=== PATIENT | male | born 1955 | race African-American/Black ===

== ENCOUNTER 2016-11-13 08:56 | Day surgery (SDC) | payer MEDICARE, OTHER ==
[2016-11-13] MEDS ORDERED: FENTANYL PF 100MCG/2ML VIAL IV ONE (14:07)
--- NOTE | 2016-11-17 09:00 | Operative Note ---
DATE OF SURGERY: 11/13/2016 SURGEON: Melissa Daugherty MD OPERATION: ESOPHAGOGASTRODUODENOSCOPY. INDICATIONS: This is a 61-year-old man with a history of gastric ulcers who presented for esophagogastroduodenoscopy. POSTOPERATIVE DIAGNOSES: 1. Mild distal esophagitis. 2. Healing gastric ulcer. 3. Normal duodenum. ANESTHESIA: Sedation is per Anesthesia. Pulse oximetry was monitored throughout the procedure to maintain O2 saturation of 90% or greater. Supplemental oxygen was administered via nasal cannula. Cardiac and vital signs were monitored throughout the duration of the procedure, and they were stable. The procedure of esophagogastroduodenoscopy and risks and benefits of the procedure, including the risk of bleeding and perforation, among others, were explained to the patient who voiced understanding and desired to have the procedure done. Physical examination was performed, and the patient was found stable for sedation. PROCEDURE: The patient was placed in the left lateral position. Sedation was initiated. A plastic bite block was inserted into the oral cavity. The Olympus LCY010 gastroscope was introduced into the oral cavity and advanced to the proximal esophagus without difficulty. The esophageal mucosa was carefully examined upon introduction of the gastroscope. The proximal and mid esophageal mucosa appeared normal. In the distal esophagus, there was mild erythema with erosions but no strictures noted. The gastroscope was then advanced into the stomach, and surveillance of the stomach revealed diffuse erythema along the gastric body and antrum with what appears to be a healing gastric antral ulcer. It is not completely healed yet. The gastroscope was then advanced to the descending duodenum. The duodenal bulb and descending duodenum appeared normal. The gastroscope was then withdrawn into the stomach and retroflexion was performed. There were no other lesions. Multiple gastric and duodenal biopsies were obtained. The gastroscope was then withdrawn while carefully examining the gastric and esophageal mucosa with no other lesions noted. Multiple distal esophageal biopsies were obtained. He remained with stable vital signs and was transferred to the recovery room. RECOMMENDATIONS: 1. He should continue on his proton pump inhibitors. 2. He is to follow up in the office as needed. Thank you for allowing me to participate in the care of your patient. Melissa Daugherty MD CC: Dr. Agusto VAN
== END 2016-11-13 10:46 | disposition home or self-care (01) ==
LOC: HOP 08:56
PROVIDERS: ATTEND Internal Medicine Gastroenterology
DX: Z87.11 Personal history of peptic ulcer disease (principal); K20.8 Other esophagitis; C15.5 Malignant neoplasm of lower third of esophagus; E03.9 Hypothyroidism, unspecified
CPT/HCPCS: 88305; 88313; 43239; 00740; J3010

== ENCOUNTER 2017-01-02 23:22 | Emergency (ER) | payer MEDICARE ==
[2017-01-02] MEDS ORDERED: ONDANSETRON HCL IV 4 MG/2 ML VIAL IVP ONE (23:40)
[2017-01-02] MEDS ORDERED: HYDROMORPHONE HCL 1 MG/ML CPJ IVP ONE (23:40)
--- NOTE | 2017-01-02 23:40 | Emergency Department Record ---
History of Present Illness - General Chief Complaint: Abdominal Pain Stated Complaint: VOMITING Time Seen by Provider: 01/02/17 23:31 Source: Patient, Family - History of Present Illness Initial Comments: The patient began having diarrhea around 4 p.m. today. Around 6 p.m. he started vomiting and and having severe abdominal pain. Emesis was bilious and more than 10 times. He states his abdomen feels bloated and it feels like his prior diverticulitis. He also recently had a upper GI scope which showed esophageal erosions distally. His reports that they just found out that he has esophageal cancer and is going to go to [facility] for treatment. This has not yet begun. His first appointment there is to be 01-06-17. MD Complaint: Abdominal pain, Other (vomiting) - Related Data Home Medications Medication Instructions Recorded Confirmed Last Taken Hydrocodone/Acetaminophen [[place] 1 tab PO Q6H PRN 11/11/15 01/02/17 03/10/16 7.5mg/325mg] Levothyroxine Sodium [Synthroid] 125 mcg PO DAILY 03/10/16 01/02/17 03/10/16 Acyclovir 400 mg PO BID 01/02/17 01/02/17 Unknown Atenolol [Tenormin] 50 mg PO ASDIR PRN 01/02/17 01/02/17 Unknown Cephalexin [Keflex] 500 mg PO BID 01/02/17 01/02/17 Unknown Famotidine [Pepcid] 20 mg PO BID 01/02/17 01/02/17 Unknown Polyethylene Glycol 3350 [Miralax] 17 gm PO DAILY 01/02/17 01/02/17 Unknown Allergies Allergy/AdvReac Type Severity Reaction Status Date / Time No Known Drug Allergies Allergy Verified 03/10/16 11:36 Review of Systems Reviewed: No additional complaints except as noted below Constitutional: Reports: As per HPI. Denies: Chills, Fever, Malaise, Night sweats, Weakness, Weight change Eyes: Reports: As per HPI. Denies: Eye discharge, Eye pain, Photophobia, Vision change ENT: Reports: As per HPI. Denies: Congestion, Dental pain, Ear pain, Epistaxis , Hearing loss, Throat pain Respiratory: Reports: As per HPI. Denies: Cough, Dyspnea, Hemoptysis, Stridor, Wheezes Cardiovascular: Reports: As per HPI. Denies: Arrhythmia, Chest pain, Dyspnea on exertion, Edema, Murmurs, Orthopnea, Palpitations, Paroxysmal nocturnal dyspnea, Rheumatic Fever, Syncope Endocrine: Reports: As per HPI. Denies: Fatigue, Heat or cold intolerance, Polydipsia, Polyuria Gastrointestinal: Reports: As per HPI. Denies: Abdominal pain, Constipation, Diarrhea, Hematemesis, Hematochezia, Melena, Nausea, Vomiting Genitourinary: Reports: As per HPI. Denies: Dysuria, Frequency, Hematuria, Incontinence, Retention, Testicular pain, Testicular mass, Urgency Musculoskeletal: Reports: As per HPI. Denies: Arthralgia, Back pain, Gout, Joint swelling, Myalgia, Neck pain Skin: Reports: As per HPI. Denies: Bruising, Change in color, Change in hair/ nails, Lesions, Pruritus, Rash Neurological: Reports: As per HPI. Denies: Abnormal gait, Confusion, Headache, Numbness, Paresthesias, Seizure, Tingling, Tremors, Vertigo, Weakness Psychiatric: Reports: As per HPI. Denies: Anxiety, Auditory hallucinations, Depression, Homicidal thoughts, Suicidal thoughts, Visual hallucinations Hematological/Lymphatic: Reports: As per HPI. Denies: Anemia, Blood Clots, Easy bleeding, Easy bruising, Swollen glands Past Medical History - SOCIAL HISTORY Smoking Status: Former smoker - RESPIRATORY Hx Respiratory Disorders: No - CARDIOVASCULAR Hx Cardio Disorders: No Comment:: d/t back/knee pain - NEURO Hx Neuro Disorders: No - GI Hx GI Disorders: Yes Hx Ulcer: Yes (pt does not think so) - Hx Genitourinary Disorders: No - ENDOCRINE Hx Endocrine Disorders: Yes Hx Thyroid Disease: Yes - MUSCULOSKELETAL Hx Musculoskeletal Disorders: Yes - PSYCH Hx Psych Problems: No - HEMATOLOGY/ONCOLOGY Hx Hematology/Oncology Disorders: No Physical Exam - General General Appearance: Alert, Oriented x3, Cooperative, Severe distress - Head Head exam: Normal inspection - Eye Eye exam: Normal appearance, PERRL Pupils: Normal accommodation - ENT ENT exam: Normal exam, Mucous membranes dry, Normal external ear exam, Normal orophraynx, TM's normal bilaterally Ear exam: Normal external inspection. negative: External canal tenderness Nasal Exam: Normal inspection. negative: Discharge, Sinus tenderness Mouth exam: Normal external inspection, Tongue normal Teeth exam: Normal inspection. negative: Dental caries Throat exam: Normal inspection. negative: Tonsillar erythema, Tonsillar exudate - Neck Neck exam: Normal inspection, Full ROM. negative: Tenderness - Respiratory Respiratory exam: Normal lung sounds bilaterally. negative: Respiratory distress - Cardiovascular Cardiovascular Exam: Regular rate, Normal rhythm, Normal heart sounds - GI/Abdominal GI/Abdominal exam: Soft, Normal bowel sounds, Distended, Tenderness (diffusely all quadrants) - Rectal Rectal exam: Deferred - exam: Deferred - Extremities Extremities exam: Normal inspection, Full ROM, Normal capillary refill. negative: Tenderness - Back Back exam: Reports: Normal inspection, Full ROM. Denies: Muscle spasm, Rash noted, Tenderness - Neurological Neurological exam: Alert, Normal gait, Oriented X3, Reflexes normal - Psychiatric Psychiatric exam: Normal affect, Normal mood - Skin Skin exam: Dry, Intact, Normal color, Warm Course - Reevaluation(s) Reevaluation #1: Patient's pain has decreased from 10/10 to 7/10 and he appears much more comfortable. His nausea also has improved. He is complaining of his LUQ hurting which does NOT go into his back. He is tender over his entire abdomen but most tender LUQ. He denies any allergies to contrast dye. 01/02/17 23:56 01/03/17 00:00 Reevaluation #2: Reviewed report of 11-13-16 of an esophagogastroduodenoscopy which showed mild distal esophagitis, healing gastric ulcer and a normal duodenum. reports that the biopsies from this procedure returned with esophageal cancer which the doctors think is localized. 01/02/17 23:58 Reevaluation #3: Repeat abdominal exam shows RLQ to be NONtender to palpation. Remainder of abdomen is diffusely tender but no point tenderness, less distention. Soft, no rebound. 01/03/17 01:26 01/03/17 01:44 Reevaluation #4: There is no surgeon fashion designer for this hospital this weekend. Spoke to Dr. Vieyra, surgery fashion designer for [facility] who accepts patient for a direct admit to his service. Patient and his understand and agree. 01/03/17 01:41 01/03/17 01:44 Medical Decision Making - Management Options MDM Management: Additional Work-up Planned (e.g. ADM/Transfer/OP Study) ( Transfer to [facility] for a direct admit surgical referral) - Data Complexity MDM Data: Labs Ordered and/or Reviewed, X-Ray Ordered and/or Reviewed (Contrast CT Abd/Pelvis:9mm aoppendix costining a large appendicolith without surrounding inflamation.Clinical correlation for focal right lower quadrant tenderness is recommended. There is duffuse mild wall thickinging of the colon. Colon is relatively decompresed, but clinical correlation for evidence of colitis is recommended. No evidence of obstruction, perforation or abscess.), EKG Ordered and/or Reviewed - Lab Data Result diagrams: 01/02/17 23:40 01/02/17 23:40 - EKG Data -: EKG Interpreted by Ut EKG: No Acute Changes Disposition Disposition: Transfer Clinical Impression: Non-specific colitis, Appendicolith Abdominal pain Qualifiers: Abdominal location: generalized Qualified Code(s): R10.84 - Generalized abdominal pain Nausea & vomiting Qualifiers: Vomiting type: bilious vomiting Qualified Code(s): R11.14 - Bilious vomiting Disposition: Acute Care Hospital Transfer Decision to Admit: Admit from ER Transfer To: [facility] Reason For Transfer: Surgery admission Accepting Physician: Dr. Vieyra Time Discussed w/Accepting Physician: 01:47 Condition: (2) Stable Forms: Patient Portal Access
[2017-01-02] MEDS ORDERED: FAMOTIDINE IV 20 MG/2 ML VIAL IVP ONE (23:41)
[2017-01-02] MEDS ORDERED: 0.9 % SODIUM CHLORIDE 1,000 ML BAG IV ONE (23:41)
[2017-01-02 23:55] LABS: HEMATOCRIT 42.6 % (42.0-52.0); HEMOGLOBIN 13.8 gm/dl (14.0-18.0); MEAN CELL VOLUME 79.6 fl (81-97); MEAN CORPUSCULAR HGB CONC 32.4 g/dl (32-36); MEAN PLATELET VOLUME 9.5 fl (7.4-10.4); PLATELET COUNT 249 K/uL (130-400); RED BLOOD COUNT 5.35 M/uL (4.40-5.70); RED CELL DISTRIBUTION WIDTH 18.5 % (11.5-14.5); WHITE BLOOD COUNT W/O DIFF 9.2 K/uL (4.2-12.2)
[2017-01-02 23:59] LABS: MEAN CORPUSCULAR HEMOGLOBIN 25.7 pg (27-33)
[2017-01-03] MEDS ORDERED: PROMETHAZINE HCL 25 MG/ML VIAL IVP ONE ×2 (00:04→03:21)
[2017-01-03 00:08] LABS: ALKALINE PHOSPHATASE 74 U/L (38-126); ALT/SGPT 41 U/L (21-72); ANION GAP 16.3 (7-16); AST/SGOT 33 U/L (17-59); BILIRUBIN,TOTAL 0.68 mg/dL (0.2-1.3); BLOOD UREA NITROGEN 14 mg/dL (9-20); CARBON DIOXIDE 25.7 mmol/L (22-30); EST GLOMERULAR FILTRATION RATE > 60 ml/min; GLUCOSE,RANDOM 129 mg/dL (70-110); TOTAL PROTEIN 8.3 gm/dL (6.3-8.2)
[2017-01-03 00:19] LABS: TROPONIN I < 0.012 ng/mL (0.00-0.034)
[2017-01-03 01:15] LABS: URINE APPEARANCE CLEAR; URINE BILIRUBIN NEGATIVE (NEGATIVE); URINE BLOOD TRACE-I (NEGATIVE); URINE COLOR YELLOW; URINE GLUCOSE (UA) NEGATIVE (NEGATIVE); URINE KETONE NEGATIVE (NEGATIVE); URINE LEUKOCYTE ESTERASE NEGATIVE (NEGATIVE); URINE NITRITE NEGATIVE (NEGATIVE); URINE PROTEIN NEGATIVE (NEGATIVE); URINE UROBILINOGEN 0.2 E.U./dL (0.20 - 1.00)
[2017-01-03 01:27] LABS: URINE EPITHELIAL CELLS 0 - 2 (FEW); URINE RBC 0 - 2 (NONE SEEN); URINE WBC 0 - 2 (0-2/hpf)
[2017-01-03] MEDS ORDERED: ERTAPENEM SODIUM 1 G in 0.9 % SODIUM CHLORIDE 100ML 100 ML IVPB ONE (01:36)
[2017-01-03] MEDS ORDERED: HYDROMORPHONE HCL 1 MG/ML CPJ IVP ONE ×2 (01:45→03:21)
== END 2017-01-03 03:27 | disposition short-term general hospital (02) ==
LOC: ER 23:22
DX: K38.1 Appendicular concretions (principal); K52.9 Noninfective gastroenteritis and colitis, unspecified; R19.7 Diarrhea, unspecified; R10.84 Generalized abdominal pain; R11.14 Bilious vomiting
CPT/HCPCS: 99285 ×2; 96376; 96374; 96375; 83690; 85025; 80076; 84484; 80048; 81001; 85027; 74177; 93005; 93010; Q9967; J1335; J2405; J1170 ×2; J2550; J3490; J7030

== ENCOUNTER 2017-01-04 15:51 | Emergency (ER) | payer MEDICARE | END 2017-01-04 16:15 | disposition left against medical advice (07) | LOC: ER 15:51 | DX: Z53.20 Procedure and treatment not carried out because of patient's decision for unspecified reasons (principal) ==

== ENCOUNTER 2017-01-05 01:15 | Emergency (ER) | payer MEDICARE ==
[2017-01-05] MEDS ORDERED: 0.9 % SODIUM CHLORIDE 1,000 ML BAG IV ONE ×2 (01:29→03:15)
[2017-01-05] MEDS ORDERED: ONDANSETRON HCL IV 4 MG/2 ML VIAL IVP ONE ×3 (01:38→03:22)
[2017-01-05] MEDS ORDERED: HYDROMORPHONE HCL 1 MG/ML CPJ IVP ONE ×2 (01:38→03:18)
[2017-01-05 02:00] LABS: BASO % 0.2 % (0-6); GRAN % 73.5 % (47-80); HEMATOCRIT 46.5 % (42.0-52.0); HEMOGLOBIN 15.4 gm/dl (14.0-18.0); LYMPH % 15.5 % (16-45); MEAN CELL VOLUME 78.3 fl (81-97); MEAN CORPUSCULAR HEMOGLOBIN 25.9 pg (27-33); MEAN CORPUSCULAR HGB CONC 33.1 g/dl (32-36); MONO % 10.8 % (0-9); PLATELET COUNT 251 K/uL (130-400); RED BLOOD COUNT 5.94 M/uL (4.40-5.70); RED CELL DISTRIBUTION WIDTH 19.5 % (11.5-14.5); WHITE BLOOD COUNT W/O DIFF 12.6 K/uL (4.2-12.2)
--- NOTE | 2017-01-05 02:06 | Emergency Department Record ---
History of Present Illness - General Chief Complaint: Abdominal Pain Stated Complaint: ABD PAIN Time Seen by Provider: 01/05/17 01:27 Source: Patient, Family Mode of Arrival: Ambulatory - History of Present Illness Initial Comments: 61 yo male presents with nausea, vomiting and abdominal pain. He was seen in the ER on 01/02/17 and sent to [facility] He was released on Wednesday. After about one hour and a half the pain returned with nausea and vomiting. He reports he went to the ER again. He was evaluated in the ED and states he was discharged. His nausea and and pain have continued. Over the last several months he has had similar episodes of pain and vomiting. He has been admitted to [facility] and [facility]. He has had multiple CT scans and scopes. He was diagnosed with esophageal cancer on 11/13/16 in the distal esophagus on EGD by Dr Daugherty. He has an appointment at [facility] on 01/06/17 On 09/02/17 the patient was admitted to [facility], GI consult, CT scan, On 11/13/16 the patient had an EGD with Dr Daugherty. 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 EGD US performed3/7mm thickening noted, esophagitis, recommend Pet Scan, CT chest, and [facility] referral On 12/01/16 the patient developed nausea and vomiting with abdominal pain and was admitted to [facility] for 4 days. DC on 12/05/16. Intractable NV, abdominal pain On 12/30/16 the patient met with [facility] physician to discuss the cancer treatment plan On 01/02/17 the patient develop recurrent NV and was seen at [facility] and transferred to [facility]. The CT scan demonstrated an appendicolith, decompressed colon and possibly thickened. The patient was discharged on 01/04/17. He is scheduled on 01/06/17 to start his cancer treatment. MD Complaint: Abdominal pain Onset/Timin -: Hour(s) Location: Diffuse Radiation: None Migration to: No migration Severity: Severe Quality: Aching Consistency: Constant Improves With: Nothing Worsens With: Nothing Context: Other Associated Symptoms: Denies other symptoms - Related Data Home Medications Medication Instructions Recorded Confirmed Last Taken Hydrocodone/Acetaminophen [[place] 1 tab PO Q6H PRN 11/11/15 01/05/17 01/04/17 7.5mg/325mg] Levothyroxine Sodium [Synthroid] 125 mcg PO DAILY 03/10/16 01/05/17 01/04/17 Acyclovir 400 mg PO BID 01/02/17 01/05/17 01/04/17 Cephalexin [Keflex] 500 mg PO BID 01/02/17 01/05/17 01/04/17 Polyethylene Glycol 3350 [Miralax] 17 gm PO DAILY 01/02/17 01/05/17 01/04/17 Allergies Allergy/AdvReac Type Severity Reaction Status Date / Time tramadol Allergy HEADACHE Verified 01/05/17 01:19 Travel Screening - Travel/Exposure Within Last 30 Days Have you traveled within the last 30 days?: No - Travel/Exposure Within Last Year Have you traveled outside the [place] in the last year?: No - Additonal Travel Details Have you been exposed to anyone with a communicable illness?: No - Travel Symptoms Symptom Screening: None Past Medical History - SOCIAL HISTORY Smoking Status: Former smoker Alcohol Use: None Drug Use: None - RESPIRATORY Hx Respiratory Disorders: No - CARDIOVASCULAR Hx Cardio Disorders: No Comment:: d/t back/knee pain - NEURO Hx Neuro Disorders: No - GI Hx GI Disorders: Yes Hx Ulcer: Yes (pt does not think so) - Hx Genitourinary Disorders: No - ENDOCRINE Hx Endocrine Disorders: Yes Hx Thyroid Disease: Yes - MUSCULOSKELETAL Hx Musculoskeletal Disorders: Yes - PSYCH Hx Psych Problems: No - HEMATOLOGY/ONCOLOGY Hx Hematology/Oncology Disorders: Yes Hx Cancer: Yes (Esophageal Cancer) Hx Chemotherapy: No Hx Radiation Therapy: No Family Medical History Any Significant Family History?: No Course Vital Signs 01/05/17 01:18 Temperature 99.5 F Pulse Rate 114 H Respiratory 16 Rate Blood Pressure 141/116 Pulse Ox 100 - Reevaluation(s) Reevaluation #1: The patient received the Zofran and Dilaudid and feels much better. 01/05/17 02:05 CBC reviewed. WBC 12, no acute changes. 01/05/17 02:33 Reevaluation #2: The second shift supervisor at [facility] stated she does not have records available to send from the 01/02/17 admission or the 01/04/17 ED visit. Medical records at [facility] were unable find or provide the 12/01/16 admission records. 01/05/17 02:41 Reevaluation #3: The labs were reviewed No acute changes on the CMP or Lipase 01/05/17 02:59 The patient continues to do well. I am receiving records from the other hospitals visits He has had recurrent episodes over a few months like this He was unable to fill his pain prescription or nausea prescription after discharge. 01/05/17 03:19 Reevaluation #4: The patient continues to do very well with no pain or nausea We discussed the need to follow up tomorrow at [facility] as scheduled He had run out of his [place] but will refill them this morning when the pharmacy opens as well as the Zofran which he did not have at home 01/05/17 03:28 01/05/17 03:31 01/05/17 04:17 Medical Decision Making - Lab Data Result diagrams: 01/05/17 02:00 01/05/17 02:00 Disposition Disposition: Discharge Clinical Impression: Nausea & vomiting Qualifiers: Vomiting type: bilious vomiting Qualified Code(s): R11.14 - Bilious vomiting Abdominal pain Qualifiers: Abdominal location: generalized Qualified Code(s): R10.84 - Generalized abdominal pain Disposition: Home, Self-Care Condition: (1) Good Instructions: Abdominal Pain (ED) Additional Instructions: Clear liquids today Fill your prescriptions your were provided at [facility] Follow [facility]. Return immediately if you have any return of symptoms Forms: Patient Portal Access Time of Disposition: 03:29
[2017-01-05 02:48] LABS: URINE APPEARANCE CLEAR; URINE BILIRUBIN NEGATIVE (NEGATIVE); URINE BLOOD MODERATE (NEGATIVE); URINE COLOR YELLOW; URINE GLUCOSE (UA) NEGATIVE (NEGATIVE); URINE KETONE 15 mg/dL (NEGATIVE); URINE LEUKOCYTE ESTERASE NEGATIVE (NEGATIVE); URINE NITRITE NEGATIVE (NEGATIVE); URINE UROBILINOGEN 0.2 E.U./dL (0.20 - 1.00)
[2017-01-05 02:55] LABS: URINE BACTERIA NONE SEEN; URINE EPITHELIAL CELLS 0 - 2 (FEW); URINE WBC 0 - 2 (0-2/hpf)
[2017-01-05 02:56] LABS: ALBUMIN 4.3 gm/dL (3.5-5.0); ALKALINE PHOSPHATASE 67 U/L (38-126); ALT/SGPT 40 U/L (21-72); ANION GAP 15.2 (7-16); AST/SGOT 41 U/L (17-59); BILIRUBIN,TOTAL 0.68 mg/dL (0.2-1.3); BLOOD UREA NITROGEN 9 mg/dL (9-20); CARBON DIOXIDE 23.8 mmol/L (22-30); CREATININE 0.8 mg/dL (0.66-1.25); EST GLOMERULAR FILTRATION RATE > 60 ml/min; GLUCOSE,RANDOM 110 mg/dL (70-110); LIPASE 71 U/L (23-300); TOTAL PROTEIN 7.1 gm/dL (6.3-8.2)
[2017-01-05] MEDS ORDERED: HYDROCODONE/APAP 7.5/325MG TABLET PO ONE (04:19)
[2017-01-05] MEDS ORDERED: ONDANSETRON 4 MG ODT TABLET SL ONE (04:19)
== END 2017-01-05 04:37 | disposition home or self-care (01) ==
LOC: ER 01:15
DX: R11.14 Bilious vomiting (principal); R10.84 Generalized abdominal pain; C15.5 Malignant neoplasm of lower third of esophagus; Z87.891 Personal history of nicotine dependence
CPT/HCPCS: 80048; 80076; 81001; 83690; 85025; J1170; J2405; J7030

== ENCOUNTER 2017-01-05 13:58 | Observation (INO) | payer MEDICARE ==
[2017-01-05] MEDS ORDERED: HYDROMORPHONE HCL 1 MG/ML CPJ IVP ONE ×2 (14:15→16:46)
[2017-01-05] MEDS ORDERED: 0.9 % SODIUM CHLORIDE 1000ML 1,000 ML IV SCH (14:15)
[2017-01-05] MEDS ORDERED: ONDANSETRON HCL IV 4 MG/2 ML VIAL IVP ONE ×2 (14:15→16:46)
--- NOTE | 2017-01-05 14:19 | Emergency Department Record ---
History of Present Illness - General Chief Complaint: Abdominal Pain Stated Complaint: ABD PAIN/VOMITING ELVATED B/P Time Seen by Provider: 01/05/17 14:01 Source: Patient Mode of Arrival: Ambulatory Limitations: No limitations - History of Present Illness Initial Comments: 61 yo male returns to ED for recurrent nausea, vomiting, and abdominal pain symptoms. Patient was recently seen 01/02/17 and transferred to [facility] [place] consultation regarding a distended appendix and appendocolith. Patient was admitted and discharged 01/04/17 following improvement of his symptoms. Patient returned to the ED this morning, was treated for his symptoms which markedly improved, and was discharged home with instruction to fill his prescription for analgesia and antiemetic this morning which the patient reports that he filled. Patient reports taking his prescription medications which did not help much. Patient was scheduled for consultation at [facility] tomorrow to begin treatment for esophageal cancer as well, but reports that he is going to cancel his appointment tomorrow. MD Complaint: Abdominal pain Onset/Timin -: Days(s) Location: Periumbilical Radiation: None Migration to: No migration Severity: Severe Quality: Other Consistency: Constant Improves With: Nothing Worsens With: Nothing Associated Symptoms: Fever, Nausea, Vomiting - Related Data Home Medications Medication Instructions Recorded Confirmed Last Taken Hydrocodone/Acetaminophen [[place] 1 tab PO Q4HR PRN 11/11/15 01/05/17 01/05/17 7.5mg/325mg] Levothyroxine Sodium [Synthroid] 125 mcg PO DAILY 03/10/16 01/05/17 01/04/17 Acyclovir 400 mg PO BID 01/02/17 01/05/17 01/04/17 Cephalexin [Keflex] 500 mg PO BID 01/02/17 01/05/17 01/04/17 Polyethylene Glycol 3350 [Miralax] 17 gm PO DAILY 01/02/17 01/05/17 01/04/17 Allergies Allergy/AdvReac Type Severity Reaction Status Date / Time tramadol Allergy HEADACHE Verified 01/05/17 14:09 Travel Screening - Travel/Exposure Within Last 30 Days Have you traveled within the last 30 days?: No Review of Systems Constitutional: Denies: Chills, Fever, Malaise, Night sweats Eyes: Denies: Eye discharge, Eye pain ENT: Denies: Congestion, Ear pain, Epistaxis Respiratory: Denies: Cough, Dyspnea Cardiovascular: Denies: Chest pain, Dyspnea on exertion Endocrine: Denies: Fatigue, Heat or cold intolerance Gastrointestinal: Reports: Abdominal pain, Nausea, Vomiting Genitourinary: Denies: Incontinence, Retention Musculoskeletal: Denies: Arthralgia, Back pain, Gout, Joint swelling Skin: Denies: Bruising, Change in color Neurological: Denies: Abnormal gait, Confusion, Headache, Seizure Psychiatric: Denies: Anxiety Hematological/Lymphatic: Denies: Anemia, Blood Clots, Easy bleeding Past Medical History - SOCIAL HISTORY Smoking Status: Former smoker Alcohol Use: None Drug Use: None - RESPIRATORY Hx Respiratory Disorders: No - CARDIOVASCULAR Hx Cardio Disorders: No - NEURO Hx Neuro Disorders: No - GI Hx GI Disorders: Yes - Hx Genitourinary Disorders: No - ENDOCRINE Hx Endocrine Disorders: Yes Hx Thyroid Disease: Yes - MUSCULOSKELETAL Hx Musculoskeletal Disorders: Yes - PSYCH Hx Psych Problems: No - HEMATOLOGY/ONCOLOGY Hx Hematology/Oncology Disorders: Yes Hx Cancer: Yes (Esophageal Cancer) Hx Chemotherapy: No Hx Radiation Therapy: No Family Medical History Any Significant Family History?: No Physical Exam - General General Appearance: Alert, Oriented x3, Cooperative, Moderate distress Limitations: No limitations - Head Head exam: Atraumatic, Normocephalic, Normal inspection Head exam detail: negative: Abrasion, Contusion, Radford's sign, General tenderness, Hematoma, Laceration - Eye Eye exam: Normal appearance. negative: Conjunctival injection, Periorbital swelling, Periorbital tenderness, Scleral icterus - ENT Ear exam: negative: Auricular hematoma, Auricular trauma Nasal Exam: negative: Active bleeding, Discharge, Dried blood, Foreign body Mouth exam: negative: Drooling, Laceration, Muffled voice, Tongue elevation - Neck Neck exam: Normal inspection. negative: Meningismus, Tenderness - Respiratory Respiratory exam: Normal lung sounds bilaterally. negative: Rales, Respiratory distress, Rhonchi, Stridor - Cardiovascular Cardiovascular Exam: Regular rate, Normal rhythm, Normal heart sounds - GI/Abdominal GI/Abdominal exam: Soft, Tenderness (diffuse TTP on examination). negative: Rebound, Rigid - Rectal Rectal exam: Deferred - exam: Deferred - Extremities Extremities exam: Normal inspection. negative: Calf tenderness, Pedal edema, Tenderness - Back Back exam: Denies: CVA tenderness (R), CVA tenderness (L) - Neurological Neurological exam: Alert, Oriented X3. negative: Motor sensory deficit - Psychiatric Psychiatric exam: Normal affect, Normal mood - Skin Skin exam: Normal color. negative: Abrasion Type of lesion: negative: abrasion Course Vital Signs 01/05/17 14:01 Temperature 98.4 F Pulse Rate 80 Respiratory 20 Rate Blood Pressure 204/114 Pulse Ox 99 - Reevaluation(s) Reevaluation #1: 01/05/17 14:23 CT Abdomen and Pelvis 01/02/17: demonstration of appendicolith with dialted appendix, decompressed colon possible thickened. Reevaluation #2: 01/05/17 16:17 Labs reviewed, WBC improved from this morning (10.6 dwon from 12.6), CO2 20.3, AG 21.7. Labs are otherwise grossly unremarkable for an acute process. Reevaluation #3: 01/05/17 16:47 Patient's symptoms are improved however are now beginning to return. Repeat analgesia and anti-emetic ordered for the patient. Will initiate transfer for intractable nausea, vomiting, and abdominal pain symptoms and oncologic consultation (Dr. Kuo) 01/05/17 16:54 Reevaluation #4: 01/05/17 16:57 Case was discussed with Dr. Simms ( of ), hospital is currently closed to transfers/admissions. Will discuss admission with Dr. Sandoval. 01/05/17 18:24 Reevaluation #5: 01/05/17 17:08 Case was discussed with Dr. Sandoval, will admit for observation. 01/05/17 18:25 Medical Decision Making - Lab Data Result diagrams: 01/05/17 15:51 01/05/17 15:51 Disposition Disposition: Admit Clinical Impression: Abdominal pain Qualifiers: Abdominal location: generalized Qualified Code(s): R10.84 - Generalized abdominal pain Nausea & vomiting Qualifiers: Vomiting type: bilious vomiting Qualified Code(s): R11.14 - Bilious vomiting Disposition: Still a Patient at [facility] Decision to Admit: Admit from ER Decision to Admit Date: 01/05/17 Decision to Admit Time: 17:09 Time of Disposition: 17:09
[2017-01-05 15:55] LABS: BASO % 0.2 % (0-6); EOS % 1.2 % (0-6); GRAN % 78.4 % (47-80); HEMATOCRIT 43.5 % (42.0-52.0); HEMOGLOBIN 14.2 gm/dl (14.0-18.0); MEAN CELL VOLUME 78.4 fl (81-97); MEAN CORPUSCULAR HEMOGLOBIN 25.6 pg (27-33); MEAN CORPUSCULAR HGB CONC 32.6 g/dl (32-36); MEAN PLATELET VOLUME 9.5 fl (7.4-10.4); MONO % 7.2 % (0-9); PLATELET COUNT 206 K/uL (130-400); RED BLOOD COUNT 5.55 M/uL (4.40-5.70); RED CELL DISTRIBUTION WIDTH 18.9 % (11.5-14.5); WHITE BLOOD COUNT W/O DIFF 10.6 K/uL (4.2-12.2)
[2017-01-05 16:08] LABS: ALB/GLOB RATIO 1.5 (1.1-1.8); ALBUMIN 5.2 gm/dL (3.5-5.0); ALKALINE PHOSPHATASE 78 U/L (38-126); ALT/SGPT 38 U/L (21-72); ANION GAP 21.7 (7-16); AST/SGOT 65 U/L (17-59); BLOOD UREA NITROGEN 9 mg/dL (9-20); CARBON DIOXIDE 20.3 mmol/L (22-30); CREATININE 0.8 mg/dL (0.66-1.25); EST GLOMERULAR FILTRATION RATE > 60 ml/min; GLUCOSE,RANDOM 101 mg/dL (70-110); LIPASE 78 U/L (23-300); TOTAL PROTEIN 8.7 gm/dL (6.3-8.2)
[2017-01-05] MEDS ORDERED: AL HYDROX/MAG HYDROX 30ML UD PO ONE (17:15)
[2017-01-05] MEDS: 0.9 % SODIUM CHLORIDE 1000ML 1,000 ML IV PRN ×2 (17:59→21:01)
[2017-01-05] MEDS: CEPHALEXIN 500 MG CAPSULE PO SCH (21:04)
[2017-01-05] MEDS: ACYCLOVIR 200 MG CAPSULE PO SCH (21:04)
[2017-01-05] MEDS: HYDROMORPHONE HCL 1 MG/ML CPJ IVP PRN (21:05)
[2017-01-05] MEDS: ONDANSETRON HCL IV 4 MG/2 ML VIAL IVP PRN (21:07)
[2017-01-05] MEDS ORDERED: ACYCLOVIR 400 MG PO SCH (22:00)
[2017-01-06] MEDS: HYDROMORPHONE HCL 1 MG/ML CPJ IVP PRN ×6 (01:07→21:13)
[2017-01-06] MEDS: ONDANSETRON HCL IV 4 MG/2 ML VIAL IVP PRN ×6 (01:07→21:13)
[2017-01-06] MEDS: 0.9 % SODIUM CHLORIDE 1000ML 1,000 ML IV PRN (05:16)
[2017-01-06] MEDS: ACYCLOVIR 200 MG CAPSULE PO SCH (09:02)
[2017-01-06] MEDS: CEPHALEXIN 500 MG CAPSULE PO SCH (09:02)
[2017-01-06] MEDS ORDERED: POLYETHYLENE GLY 17 GM PACKET PO SCH (10:00)
[2017-01-06] MEDS ORDERED: ENOXAPARIN 40 MG/0.4 ML SYR SQ SCH (10:15)
--- NOTE | 2017-01-06 13:32 | History & Physical ---
History of Present Illness - Date of Service Date of Service for History & Physical: 01/06/17 - History of Present Illness Admitting Diagnosis: Intractable abdominal pain. Nausea/vomiting History of Present Illness: Shai Almonte is a 61 y/o male with recent diagnosis of esophageal cancer in November 2016 presenting to ER with persistent nausea, vomiting and abdominal pain since 01/02/17. He was had multiple ER visits and admissions in past two month for similar symptoms however, detailed below. On 09/02/17 the patient was admitted to [facility] ([facility]), GI consult, CT scan. On 11/13/16 the patient had an EGD with Dr Daugherty ([facility] The pathology of the distal esophagus demonstrated adenocarcinoma (high grade). On 11/30/16 the patient had a second scope with Dr Daugherty at [facility]. EGD US performed showed 3/7mm thickening, esophagitis. It was recommend to have further Pet Scan, CT chest, and [facility] referral. On 12/01/16 the patient developed nausea and vomiting with abdominal pain and was admitted to [facility] for 4 days. DC on 12/05/16. No further record on hand of this admission. On 12/30/16 the patient met with Mahendra physician to discuss the cancer treatment plan On 01/02/17 the patient develop recurrent N/V and was seen at [facility] and transferred to [facility]. The CT scan demonstrated an appendicolith, decompressed colon and possibly thickened upon initial read of report. However, once patient was transferred the CT was reread by the surgical team as normal. The patient was discharged on 01/04/17. with follow up appt with [facility]hen[facility] on 01/07/17. However his symptoms of N/V/abdominal pain resulted in him returning to our ER on 01/05 (along with another ER visit on 01/05, 01/02), in [place] where he resides. This is his 3rd ER visit for the same in the past month at our ER. He was admitted under OBS for pain control while awaiting initial consultation with [facility]. [facility] Ont[facility] was unable to accept transfer due to "divergence status" and recommended he follow up in the clinic at his appt time on 01/07. The Nguyen consulting sales executive pito stated she would contact the clinic he is following up with to inform them to send him to ER if he is still symptomatic. Our attending , Dr. Sebastian, spoke to PCP, Dr. Meza, and received the notes that we have reviewed and included in his chart. Psx: hemorrhoidectomy, inguinal hernia repair, left great toe surgery Pmx: GERD, gastritis, hashimotos thyroiditis with iodine tx, hypothyroid s/p iodine tx, gastric ulcer, genital herpes, arthritis, previsou smoker quit [address] Meza (contacted on 01/06 to inform him of admission) Travel Screening - Travel/Exposure Within Last 30 Days Have you traveled within the last 30 days?: No - Travel/Exposure Within Last Year Have you traveled outside the [place] in the last year?: No - Additonal Travel Details Have you been exposed to anyone with a communicable illness?: No - Travel Symptoms Symptom Screening: None Review of Systems Constitutional: Denies: Chills, Fever, Malaise, Night sweats Eyes: Denies: Eye discharge, Eye pain ENT: Denies: Congestion, Ear pain, Epistaxis Respiratory: Denies: Cough, Dyspnea Cardiovascular: Denies: Chest pain, Dyspnea on exertion Endocrine: Denies: Fatigue, Heat or cold intolerance Gastrointestinal: Reports: Abdominal pain, Nausea, Vomiting Genitourinary: Denies: Incontinence, Retention Musculoskeletal: Denies: Arthralgia, Back pain, Gout, Joint swelling Skin: Denies: Bruising, Change in color Neurological: Denies: Abnormal gait, Confusion, Headache, Seizure Psychiatric: Denies: Anxiety Hematological/Lymphatic: Denies: Anemia, Blood Clots, Easy bleeding Past Medical History - SOCIAL HISTORY Smoking Status: Former smoker - RESPIRATORY Hx Respiratory Disorders: No Hx Asthma: No Hx Bronchitis: No - CARDIOVASCULAR Hx Cardio Disorders: No Hx Edema: No Hx Heart Attack: No Hx Hypertension: No Hx Hypotension: No Comment:: d/t back/knee pain - NEURO Hx Neuro Disorders: No Hx Brain Tumor: No Hx CVA: No Hx Dementia: No Hx Dizziness: No Hx Headaches: No Hx Neuropathy: No Hx Parkinson's Disease: No Hx Seizures: No Hx Speech Problem: No Hx TIA: No - GI Hx GI Disorders: Yes Hx Abdominal Pain: Yes Hx GI Bleed: No Hx Reflux: Yes Hx Hepatitis/Jaundice: No Hx Nausea/Vomiting: Yes (last emesis 1pm) Hx Obstructive Bowel: No Hx Pancreatitis: No Hx Rectal Bleeding: No Hx Ulcer: Yes (pt does not think so) Hx Wt Loss/Wt Gain: No - Hx Genitourinary Disorders: No Comment:: genital herpes - ENDOCRINE Hx Endocrine Disorders: Yes Hx Thyroid Disease: Yes - MUSCULOSKELETAL Hx Musculoskeletal Disorders: Yes Hx Arthritis: Yes Hx Back Injury: Yes - PSYCH Hx Psych Problems: No Hx Anxiety: No Hx Behavior Problems: No Hx Depression: No Hx Emotional Abuse: No Hx Sexual Abuse: No Hx Suicide Attempt: No Major Depressive Episode: No Feelings of Hopelessness: No - HEMATOLOGY/ONCOLOGY Hx Hematology/Oncology Disorders: Yes Hx Cancer: Yes (Esophageal Cancer) Hx Chemotherapy: No Hx Radiation Therapy: No Family Medical History Any Significant Family History?: No H&P Meds/Allergies - Allergies Allergies: Allergies Allergy/AdvReac Type Severity Reaction Status Date / Time tramadol Allergy HEADACHE Verified 01/05/17 14:09 - Home Medications Home Medications Medication Instructions Recorded Confirmed Last Taken Hydrocodone/Acetaminophen [[place] 1 tab PO Q4HR PRN 11/11/15 01/05/17 01/05/17 7.5mg/325mg] Acyclovir 400 mg PO BID 01/02/17 01/05/17 01/04/17 Cephalexin [Keflex] 500 mg PO BID 01/02/17 01/05/17 01/04/17 Polyethylene Glycol 3350 [Miralax] 17 gm PO DAILY 01/02/17 01/05/17 01/04/17 Levothyroxine Sodium [Synthroid] 125 mcg PO DAILYTHY 01/06/17 01/06/17 Unknown - Active Medications Active Medications: Current Medications Enoxaparin Sodium (Lovenox) 40 mg SQ DAILY [facility] Last Admin: 01/06/17 11:54 Dose: Not Given Hydromorphone HCl (Dilaudid) 1 mg IVP Q4H PRN PRN Reason: Abdominal Pain Last Admin: 01/06/17 13:16 Dose: 1 mg Sodium Chloride () 1,000 mls @ 125 mls/hr IV .Q8H PRN PRN Reason: LARGE VOLUME IV Last Admin: 01/06/17 05:16 Dose: 125 mls/hr Levothyroxine Sodium (Synthroid) 125 mcg PO DAILYTHY [facility] Ondansetron HCl (Zofran) 4 mg IVP Q4H PRN PRN Reason: NAUSEA Last Admin: 01/06/17 13:16 Dose: 4 mg Physical Exam - Vital Signs Vital Signs: Vital Signs - Last 24 Hrs Temp Pulse Pulse Pulse Resp BP BP 01/06/17 09:55 98.8 F 123/77 01/06/17 08:31 60 18 01/06/17 06:00 98.8 F 63 18 123/77 01/06/17 01:00 69 18 106/67 01/05/17 21:00 69 18 01/05/17 20:30 97.7 F 69 18 130/83 01/05/17 17:54 98.8 F 86 18 129/86 01/05/17 17:52 98.9 F 97 H 16 119/70 Pulse Ox 01/06/17 09:55 01/06/17 08:31 01/06/17 06:00 98 01/06/17 01:00 97 01/05/17 21:00 01/05/17 20:30 97 01/05/17 17:54 98 01/05/17 17:52 98 - General General Appearance: Alert, Oriented x3, Cooperative, Moderate distress Limitations: No limitations - Head Head exam: Atraumatic, Normocephalic, Normal inspection Head exam detail: negative: Abrasion, Contusion, Radford's sign, General tenderness, Hematoma, Laceration - Eye Eye exam: Normal appearance. negative: Conjunctival injection, Periorbital swelling, Periorbital tenderness, Scleral icterus - ENT Ear exam: negative: Auricular hematoma, Auricular trauma Nasal Exam: negative: Active bleeding, Discharge, Dried blood, Foreign body Mouth exam: negative: Drooling, Laceration, Muffled voice, Tongue elevation - Neck Neck exam: Normal inspection. negative: Meningismus, Tenderness - Respiratory Respiratory exam: Normal lung sounds bilaterally. negative: Rales, Respiratory distress, Rhonchi, Stridor - Cardiovascular Cardiovascular Exam: Regular rate, Normal rhythm, Normal heart sounds - GI/Abdominal GI/Abdominal exam: Soft, Normal bowel sounds, Tenderness (diffuse TTP on examination). negative: Rebound, Rigid - Rectal Rectal exam: Deferred - exam: Deferred - Extremities Extremities exam: Normal inspection. negative: Calf tenderness, Pedal edema, Tenderness - Back Back exam: Denies: CVA tenderness (R), CVA tenderness (L) - Neurological Neurological exam: Alert, Oriented X3. negative: Motor sensory deficit - Psychiatric Psychiatric exam: Normal affect, Normal mood - Skin Skin exam: Normal color. negative: Abrasion Type of lesion: negative: abrasion Results - Labs Result Diagrams: 01/05/17 15:51 01/05/17 15:51 VTE H&P Assessment - Risk for VTE Risk for VTE: Yes Risk Level: Moderate Risk Assessment Date: 01/06/17 Risk Assessment Time: 13:34 VTE Orders Placed or Will Be Placed: Yes Plan - Detailed Diagnosis and Plan (1) Abdominal pain Current Visit: Yes Status: Acute Qualifiers: Abdominal location: generalized Qualified Code(s): R10.84 - Generalized abdominal pain Base Code: R10.9 - UNSPECIFIED ABDOMINAL PAIN Comment: 01/06 addendum- Recurrent abdominal pain, nausea and vomiting since approx Aug 2016. - subsequent finding after GI consult and EGD of adenocarcinoma (high grade) of the esophagus diagnosed 11/2016. - surgical consult at [facility] 01/03/17 did not show abnormality of CT per their interpretation of the CT scan done at [facility]. - Abdominal pain, nausea and vomiting persisent but controlled with Dilauded 1mg Q 4 hrs PRN and ZOfran 4mg IVP q 4 hrs PRN. Most recent CBC normal with electrolyte successfully balanced with Magnesium replacement in ER and 0.9% NS @ 125/hr maintenance. Tolerating clear liquid diet. - Awaiting appointment at [facility] as previously scheduled for 01/07 at 0815 with oncology for cancer treatment planning as well as continued monitoring and follow up for abdominal pain. - [facility] unable to accept transfer due to divergent status, will send to [facility] earlier in morning to keep appt time. (2) Esophageal cancer Current Visit: Yes Status: Acute Base Code: C15.9 - MALIGNANT NEOPLASM OF ESOPHAGUS, UNSPECIFIED Comment: 01/06- Will keep in hospital for pain control until time for discharge to make the travel to [facility]. See note above. (3) DVT prophylaxis Current Visit: Yes Status: Acute Base Code: [id number] - Comment: 01/06- Lovenox 40mg SQ QD (4) Full code status Current Visit: Yes Status: Acute Base Code: Z78.9 - OTHER SPECIFIED HEALTH STATUS Comment: 01/06- Will remain full code during this hospitalization
[2017-01-06] MEDS ORDERED: TEMAZEPAM 15 MG CAPSULE PO PRN (17:33)
--- NOTE | 2017-01-06 17:36 | Discharge Summary ---
Providers Discharge Summary Date: 01/07/17 (discharge at 5am) Date of admission: 01/05/17 17:43 Expected Date of Discharge: 01/07/17 (dischage at 5am) Attending physician: ZAC MAYBERRY Primary care physician: YOBANI AMBROSIO D.O. Physical Exam - Vital Signs Vital Signs: Vital Signs - Last 24 Hrs Temp Pulse Pulse Pulse Resp BP BP 01/06/17 17:00 98.8 F 71 12 119/78 01/06/17 09:55 98.8 F 123/77 01/06/17 08:31 60 18 01/06/17 06:00 98.8 F 63 18 123/77 01/06/17 01:00 69 18 106/67 01/05/17 21:00 69 18 01/05/17 20:30 97.7 F 69 18 130/83 01/05/17 17:54 98.8 F 86 18 129/86 01/05/17 17:52 98.9 F 97 H 16 119/70 Pulse Ox 01/06/17 17:00 98 01/06/17 09:55 01/06/17 08:31 01/06/17 06:00 98 01/06/17 01:00 97 01/05/17 21:00 01/05/17 20:30 97 01/05/17 17:54 98 01/05/17 17:52 98 - General General Appearance: Alert, Oriented x3, Cooperative, Moderate distress Limitations: No limitations - Head Head exam: Atraumatic, Normocephalic, Normal inspection Head exam detail: negative: Abrasion, Contusion, Radford's sign, General tenderness, Hematoma, Laceration - Eye Eye exam: Normal appearance. negative: Conjunctival injection, Periorbital swelling, Periorbital tenderness, Scleral icterus - ENT Ear exam: negative: Auricular hematoma, Auricular trauma Nasal Exam: negative: Active bleeding, Discharge, Dried blood, Foreign body Mouth exam: negative: Drooling, Laceration, Muffled voice, Tongue elevation - Neck Neck exam: Normal inspection. negative: Meningismus, Tenderness - Respiratory Respiratory exam: Normal lung sounds bilaterally. negative: Rales, Respiratory distress, Rhonchi, Stridor - Cardiovascular Cardiovascular Exam: Regular rate, Normal rhythm, Normal heart sounds - GI/Abdominal GI/Abdominal exam: Soft, Normal bowel sounds, Tenderness (diffuse TTP on examination). negative: Rebound, Rigid - Rectal Rectal exam: Deferred - exam: Deferred - Extremities Extremities exam: Normal inspection. negative: Calf tenderness, Pedal edema, Tenderness - Back Back exam: Denies: CVA tenderness (R), CVA tenderness (L) - Neurological Neurological exam: Alert, Oriented X3. negative: Motor sensory deficit - Psychiatric Psychiatric exam: Normal affect, Normal mood - Skin Skin exam: Normal color. negative: Abrasion Type of lesion: negative: abrasion Hospitalization - Hospitalization Admission Diagnosis: Intractable abdominal pain. Nausea/vomiting - Problem List/Discharge Diagnosis (1) Abdominal pain Current Visit: Yes Status: Acute Discharge Diagnosis: Abdominal location: generalized Qualified Code(s): R10.84 - Generalized abdominal pain Base Code: R10.9 - UNSPECIFIED ABDOMINAL PAIN Comment: 01/07 addendum- Recurrent abdominal pain, nausea and vomiting since approx Aug 2016. - subsequent finding after GI consult and EGD of adenocarcinoma (high grade) of the esophagus diagnosed 11/2016. - surgical consult at [facility] 01/03/17 did not show abnormality of CT per their interpretation of the CT scan done at [facility]. - Abdominal pain, nausea and vomiting persisent but controlled with Dilauded 1mg Q 4 hrs PRN and ZOfran 4mg IVP q 4 hrs PRN. Most recent CBC normal with electrolyte successfully balanced with Magnesium replacement in ER and 0.9% NS @ 125/hr maintenance. Tolerating clear liquid diet. - Awaiting appointment at [facility] as previously scheduled for 01/07 at 0815 with oncology for cancer treatment planning as well as continued monitoring and follow up for abdominal pain. - [facility] unable to accept transfer due to divergent status, will send to [facility] earlier in morning to keep appt time. (2) Esophageal cancer Current Visit: Yes Status: Acute Base Code: C15.9 - MALIGNANT NEOPLASM OF ESOPHAGUS, UNSPECIFIED Comment: 01/07- Will keep in hospital for pain control until time for discharge to make the travel to [facility]. See note above. (3) DVT prophylaxis Current Visit: Yes Status: Acute Base Code: [id number] - Comment: 01/06- Lovenox 40mg SQ QD (4) Full code status Current Visit: Yes Status: Acute Base Code: Z78.9 - OTHER SPECIFIED HEALTH STATUS Comment: 01/07- Will remain full code during this hospitalization - Hospitalization Course Hospital Course: Shai Almonte is a 61 y/o male with recent diagnosis of esophageal cancer in November 2016 presenting to ER with persistent nausea, vomiting and abdominal pain since 01/02/17. He was had multiple ER visits and admissions in past two month for similar symptoms however, detailed below. On 09/02/17 the patient was admitted to [facility] ([facility]), GI consult, CT scan. On 11/13/16 the patient had an EGD with Dr Daugherty ([facility]). The pathology of the distal esophagus demonstrated adenocarcinoma (high grade). On 11/30/16 the patient had a second scope with Dr Daugherty at [facility]. EGD US performed showed 3/7mm thickening, esophagitis. It was recommend to have further Pet Scan, CT chest, and Mahendra referral. On 12/01/16 the patient developed nausea and vomiting with abdominal pain and was admitted to [facility] for 4 days. DC on 12/05/16. No further record on hand of this admission. On 12/30/16 the patient met with Mahendra physician to discuss the cancer treatment plan On 01/02/17 the patient develop recurrent N/V and was seen at [facility] and transferred to [facility]. The CT scan demonstrated an appendicolith, decompressed colon and possibly thickened upon initial read of report. However, once patient was transferred the CT was reread by the surgical team as normal. The patient was discharged on 01/04/17. with follow up appt with Mahendra on 01/07/17. However his symptoms of N/V/abdominal pain resulted in him returning to our ER on 01/05 (along with another ER visit on 01/05, 01/02), in [place] where he resides. This is his 3rd ER visit for the same in the past month at our ER. He was admitted under OBS for pain control while awaiting initial consultation with [facility]. [facility] Ont[facility] was unable to accept transfer due to "divergence status" and recommended he follow up in the clinic at his appt time on 01/07. The Nguyen application assistant physican stated she would contact the clinic he is following up with to inform them to send him to ER if he is still symptomatic. Our attending , Dr. Mayberry, spoke to PCP, Dr. Ambrosio, and received the notes that we have reviewed and included in his chart. In his hospital stay we were able to manage his pain, nausea, and vomiting with IV Dilaudid and Zofran. He is high risk for bounce back with his current medical status. CT repeated 01/06/17 at [facility] was unremarkable Psx: hemorrhoidectomy, inguinal hernia repair, left great toe surgery Pmx: GERD, gastritis, hashimotos thyroiditis with iodine tx, hypothyroid s/p iodine tx, gastric ulcer, genital herpes, arthritis, previsou smoker quit [address] Ambrosio (contacted on 01/06 to inform him of admission) Procedures: Imaging and X-Rays 01/06/17 14:16 ABDOMEN/PELVIS W CONTRAST [CT] Stat Condition at Discharge: (4) Poor Discharge Diagnosis: 1) recurrent intractable nausea/vomitting/abdominal pain 2 ) GI cancer Discharge Medications - Discharge Medications Home Medications: Ambulatory Orders Hydrocodone/Acetaminophen [[place] 7.5mg/325mg] 1 tab PO Q4HR PRN 11/11/15 [Last Taken 01/05/17] Acyclovir 400 mg PO BID 01/02/17 [Last Taken 01/04/17] Cephalexin [Keflex] 500 mg PO BID 01/02/17 [Last Taken 01/04/17] Polyethylene Glycol 3350 [Miralax] 17 gm PO DAILY 01/02/17 [Last Taken 01/04/17] Levothyroxine Sodium [Synthroid] 125 mcg PO DAILYTHY 01/06/17 [Last Taken Unknown] Discharge Plan - Discharge Instructions Activity at Discharge: Increase Activity as Tolerated Diet at Discharge: Advance to Usual Diet
[2017-01-07] MEDS: ONDANSETRON HCL IV 4 MG/2 ML VIAL IVP PRN ×2 (01:22→05:06)
[2017-01-07] MEDS: HYDROMORPHONE HCL 1 MG/ML CPJ IVP PRN ×2 (01:22→05:07)
[2017-01-07] MEDS ORDERED: LEVOTHYROXINE SODIUM 125 MCG TABLET PO SCH (07:00)
--- NOTE | 2017-01-07 07:42 | CT SCAN REPORT ---
EXAM: CT OF THE ABDOMEN AND PELVIS HISTORY: ABDOMINAL PAIN. TECHNIQUE: Axial CT scan of the abdomen and pelvis was performed following both oral and IV contrast administration, utilizing a dose of 100 ml of Omnipaque 300 for the IV contrast. Comparison: Prior CT abdomen and pelvis dated 01/03/17. Report of the prior CT is not available at the time of this interpretation. FINDINGS: A single tiny low attenuation mass far posteriorly in the right lobe of the liver is unchanged from before. Recommend correlation with prior work- up. No definite splenic, adrenal, pancreatic, or renal mass identified. There is some soft tissue density in the right inguinal region also present previously and may just be postoperative in nature. Correlation with any history of prior right inguinal hernia repair suggested. Enlarged prostate similar to before. Oral contrast given has passed throughout the small bowel into the colon with no small bowel obstruction evident. The appendix is well seen and is at about the upper limits of normal diffusely measuring just under 7 mm in diameter. No adjacent inflammatory changes are seen to suggest acute appendicitis at this time. There are thick walled segments of the colon which are nonspecific and may simply be due to incomplete distention. No calcified gallstones are seen within the gallbladder. Calcified granuloma right lateral costophrenic angle as before. Small periumbilical anterior abdominal wall hernia containing adipose tissue, but no bowel. No free intraperitoneal air or free intraperitoneal fluid evident. Degenerative change in the facets of the lower lumbar spine. Degenerative change along the anterior aspect of the sacroiliac joints as well. Degenerative disk disease in the lower lumbar spine. Multilevel facet joint arthropathy. IMPRESSION: 1. TINY LOW ATTENUATION FOCUS POSTERIORLY IN THE LIVER APPEARING UNCHANGED FROM THE PRIOR CT. 2. THICK WALLED APPEARANCE OF SECTIONS OF THE COLON MAY SIMPLY BE DUE TO INCOMPLETE DISTENTION. 3. THE APPENDIX IS DIFFUSELY AT ABOUT THE UPPER LIMITS OF NORMAL. NO DEFINITE APPENDICITIS EVIDENT. 4. ENLARGED PROSTATE BEFORE. 5. SOFT TISSUE DENSITY RIGHT INGUINAL REGION BEFORE MAY BE POSTOPERATIVE IN NATURE RELATED TO PRIOR INGUINAL HERNIA REPAIR AND CLINICAL CORRELATION IS SUGGESTED. 6. MULTILEVEL DEGENERATIVE CHANGE IN THE SPINE. 7. CALCIFIED GRANULOMA RIGHT LATERAL COSTOPHRENIC ANGLE BEFORE. JOB NUMBER: [id number] [facility]
== END 2017-01-07 05:30 | disposition home or self-care (01) ==
LOC: ER 13:58 → MEDSURG 17:43
PROVIDERS: ADMIT Family Medicine; ATTEND Family Medicine
DX: R10.84 Generalized abdominal pain (principal); C15.9 Malignant neoplasm of esophagus, unspecified; Z78.9 Other specified health status
CPT/HCPCS: 99284 ×2; 99285 ×2; 96376; 96374; 96375; 96361; 83690; 85025; 80076; 80048; 80053; 81001; 74177; G0378 ×3; Q9967; J2405 ×3; J1170 ×3; 99217; 99220; J7030

== ENCOUNTER 2017-01-07 16:27 | Emergency (ER) | payer MEDICARE ==
--- NOTE | 2017-01-07 16:48 | Emergency Department Record ---
History of Present Illness - General Chief Complaint: Abdominal Pain Stated Complaint: ABD PAIN AND VOMITING Time Seen by Provider: 01/07/17 16:47 Source: Patient Mode of Arrival: Ambulatory Limitations: No limitations - History of Present Illness Initial Comments: The patient is here due to a worsening of his abdominal pain. The patient has had an issue with AP for months and has been taking narcotics for it. He recently was diagnosed with early stages of esophageal CA by EGD and has been admitted to multiple hospitals in the last week including [facility] and [facility]. The patient just left this hospital at 5:30 am today and went to an appointment at [facility] but was not having any pain then. Since that visit his pain and vomiting have returned. He denies any ST, cough, fever, [place] or neck or back pain. MD Complaint: Abdominal pain Onset/Timin -: Days(s) Location: Diffuse Radiation: None Severity: Severe Quality: Sharp Consistency: Constant Improves With: Nothing Worsens With: Nothing Associated Symptoms: Nausea, Vomiting - Related Data Home Medications Medication Instructions Recorded Confirmed Last Taken Hydrocodone/Acetaminophen [[place] 1 tab PO Q4HR PRN 11/11/15 01/07/17 01/05/17 7.5mg/325mg] Acyclovir 400 mg PO BID 01/02/17 01/07/17 01/04/17 Cephalexin [Keflex] 500 mg PO ASDIR 01/02/17 01/07/17 01/04/17 Polyethylene Glycol 3350 [Miralax] 17 gm PO DAILY 01/02/17 01/07/17 01/04/17 Levothyroxine Sodium [Synthroid] 125 mcg PO DAILYTHY 01/06/17 01/07/17 Unknown Allergies Allergy/AdvReac Type Severity Reaction Status Date / Time tramadol Allergy HEADACHE Verified 01/05/17 14:09 Travel Screening - Travel/Exposure Within Last 30 Days Have you traveled within the last 30 days?: No Review of Systems Constitutional: Denies: Chills, Fever Eyes: Denies: Eye discharge ENT: Denies: Congestion Respiratory: Denies: Cough, Dyspnea Cardiovascular: Denies: Chest pain Gastrointestinal: Reports: Abdominal pain, Vomiting Genitourinary: Denies: Dysuria Musculoskeletal: Denies: Back pain Skin: Denies: Bruising Past Medical History - SOCIAL HISTORY Smoking Status: Former smoker - RESPIRATORY Hx Respiratory Disorders: No Hx Asthma: No Hx Bronchitis: No - CARDIOVASCULAR Hx Cardio Disorders: No Hx Edema: No Hx Heart Attack: No Hx Hypertension: No Hx Hypotension: No Comment:: d/t back/knee pain - NEURO Hx Neuro Disorders: No Hx Brain Tumor: No Hx CVA: No Hx Dementia: No Hx Dizziness: No Hx Headaches: No Hx Neuropathy: No Hx Parkinson's Disease: No Hx Seizures: No Hx Speech Problem: No Hx TIA: No - GI Hx GI Disorders: Yes Hx Abdominal Pain: Yes Hx GI Bleed: No Hx Reflux: Yes Hx Hepatitis/Jaundice: No Hx Nausea/Vomiting: Yes (last emesis 1pm) Hx Obstructive Bowel: No Hx Pancreatitis: No Hx Rectal Bleeding: No Hx Ulcer: Yes (pt does not think so) Hx Wt Loss/Wt Gain: No - Hx Genitourinary Disorders: No Comment:: genital herpes - ENDOCRINE Hx Endocrine Disorders: Yes Hx Thyroid Disease: Yes - MUSCULOSKELETAL Hx Musculoskeletal Disorders: Yes Hx Arthritis: Yes Hx Back Injury: Yes - PSYCH Hx Psych Problems: No Hx Anxiety: No Hx Behavior Problems: No Hx Depression: No Hx Emotional Abuse: No Hx Sexual Abuse: No Hx Suicide Attempt: No - HEMATOLOGY/ONCOLOGY Hx Hematology/Oncology Disorders: Yes Hx Cancer: Yes (Esophageal Cancer) Hx Chemotherapy: No Hx Radiation Therapy: No Family Medical History Any Significant Family History?: No Physical Exam - General General Appearance: Alert, Oriented x3, Cooperative, No acute distress - Head Head exam: Atraumatic, Normocephalic, Normal inspection - Eye Eye exam: Normal appearance, PERRL - ENT Throat exam: Normal inspection. negative: Tonsillar erythema, Tonsillar exudate - Neck Neck exam: Normal inspection, Full ROM. negative: Meningismus (The neck is very supple.), Tenderness - Respiratory Respiratory exam: Normal lung sounds bilaterally. negative: Respiratory distress - Cardiovascular Cardiovascular Exam: Regular rate, Normal rhythm, Normal heart sounds - GI/Abdominal GI/Abdominal exam: Soft, Tenderness (There is diffuse tenderness in all 4 quads. ). negative: Diminished bowel sounds, Distended - Extremities Extremities exam: Normal inspection, Full ROM, Normal capillary refill. negative: Tenderness Course Vital Signs 01/07/17 16:35 Temperature 99.9 F H Pulse Rate [ 88 Pulse Ox Probe] Respiratory 24 Rate Blood Pressure 202/117 [Left Arm] Pulse Ox 100 - Reevaluation(s) Reevaluation #1: I did review the patient's hx at length. He has been an inpatient at [facility] and here at [facility] in the last week and has had [address]. I do feel the patient's main issue at this time is narcotic withdrawal due to the fact his workups are normal and his esophageal issues are in the very early stages. We will treat the patient with antiemetics and Ativan and check some lab work to evaluate the patient further. 01/07/17 17:16 01/07/17 18:48 Reevaluation #2: The patient is doing better. He does have a low grade temp so I did discuss further testing including a CT scan with the patient. He is no longer vomiting and did receive 1 liter of IVF. The patient is very focused on receiving Dilaudid. Because he was not receiving any he decided to leave AMA. I also did discuss admitting him here at [facility] but the admitting physician was reluctant due to the fact we have nothing to offer him here. We have no GI doctor here and no one to take care of his cancer issues and chronic abdominal issues. The patient was instructed to continue his present medicines and to return to the ER if he changes his mind or worsens. 01/07/17 18:26 01/07/17 18:48 Reevaluation #3: Now the patient is vomiting again and is would like to be transferred to another institution. Since he was just at [facility] he would like to go back there. I did discuss the case with Dr. Iverson who is manager semiconductor for the [employer] and he accepts the patient in transfer. 01/07/17 19:09 Reevaluation #4: The patient is feeling much better at this time. He is resting comfortably and is awaiting transfer. 01/07/17 19:51 Medical Decision Making - Data Complexity MDM Data: Labs Ordered and/or Reviewed, Review and Summary of Old Record Discussed - Lab Data Result diagrams: 01/07/17 17:05 01/07/17 17:05 Disposition Disposition: Transfer Clinical Impression: Abdominal pain Qualifiers: Abdominal location: generalized Qualified Code(s): R10.84 - Generalized abdominal pain Disposition: Acute Care Hospital Transfer Transfer To: [facility] Reason For Transfer: Chronic AP Accepting Physician: Zayra Time Discussed w/Accepting Physician: 19:14 Condition: (2) Stable Instructions: Abdominal Pain (ED) Additional Instructions: Please see your PCP KARMEN. Please proceed to the ER for any worsening pain or if you change your mind. Forms: Patient Portal Access Time of Disposition: 18:47
[2017-01-07] MEDS ORDERED: 0.9 % SODIUM CHLORIDE 1,000 ML BAG IV ONE ×2 (16:53→17:38)
[2017-01-07] MEDS ORDERED: ONDANSETRON HCL IV 4 MG/2 ML VIAL IV ONE (16:53)
[2017-01-07] MEDS ORDERED: LORAZEPAM 2 MG/ML VIAL IV ONE (16:57)
[2017-01-07 17:26] LABS: HEMATOCRIT 40.5 % (42.0-52.0); HEMOGLOBIN 13.1 gm/dl (14.0-18.0); MEAN CELL VOLUME 78.9 fl (81-97); MEAN CORPUSCULAR HEMOGLOBIN 25.5 pg (27-33); MEAN CORPUSCULAR HGB CONC 32.3 g/dl (32-36); MEAN PLATELET VOLUME 9.3 fl (7.4-10.4); PLATELET COUNT 268 K/uL (130-400); RED BLOOD COUNT 5.13 M/uL (4.40-5.70); RED CELL DISTRIBUTION WIDTH 18.2 % (11.5-14.5); WHITE BLOOD COUNT W/O DIFF 10.2 K/uL (4.2-12.2)
[2017-01-07 17:37] LABS: URINE APPEARANCE CLEAR; URINE BILIRUBIN NEGATIVE (NEGATIVE); URINE BLOOD TRACE-I (NEGATIVE); URINE COLOR YELLOW; URINE GLUCOSE (UA) NEGATIVE (NEGATIVE); URINE KETONE 40 mg/dL (NEGATIVE); URINE LEUKOCYTE ESTERASE NEGATIVE (NEGATIVE); URINE NITRITE NEGATIVE (NEGATIVE); URINE PROTEIN NEGATIVE (NEGATIVE); URINE UROBILINOGEN 0.2 E.U./dL (0.20 - 1.00)
[2017-01-07 17:44] LABS: ALBUMIN 4.9 gm/dL (3.5-5.0); ALKALINE PHOSPHATASE 79 U/L (38-126); ALT/SGPT 42 U/L (21-72); AMYLASE 80 U/L (30-110); ANION GAP 17.1 (7-16); AST/SGOT 41 U/L (17-59); BILIRUBIN,TOTAL 0.81 mg/dL (0.2-1.3); BLOOD UREA NITROGEN 7 mg/dL (9-20); CARBON DIOXIDE 26.9 mmol/L (22-30); CREATININE 0.9 mg/dL (0.66-1.25); EST GLOMERULAR FILTRATION RATE > 60 ml/min; GLUCOSE,RANDOM 105 mg/dL (70-110); LIPASE 120 U/L (23-300); TOTAL PROTEIN 7.9 gm/dL (6.3-8.2)
[2017-01-07 17:45] LABS: URINE EPITHELIAL CELLS NONE SEEN (FEW); URINE RBC 0 - 2 (NONE SEEN); URINE WBC NONE SEEN (0-2/hpf)
[2017-01-07 17:45] LABS: PLATELET ESTIMATE NORMAL (NORMAL)
[2017-01-07] MEDS ORDERED: POTASSIUM CHLORIDE 20 MEQ TABLET PO ONE (18:03)
[2017-01-07] MEDS ORDERED: ACETAMINOPHEN 325 MG TAB PO ONE (18:54)
[2017-01-07] MEDS ORDERED: HYDROMORPHONE HCL 1 MG/ML CPJ IVP ONE (19:14)
[2017-01-07] MEDS ORDERED: ONDANSETRON HCL IV 4 MG/2 ML VIAL IVP ONE (19:14)
== END 2017-01-07 20:15 | disposition short-term general hospital (02) ==
LOC: ER 16:27
DX: R10.84 Generalized abdominal pain (principal); R11.2 Nausea with vomiting, unspecified; C15.9 Malignant neoplasm of esophagus, unspecified
CPT/HCPCS: 99285 ×2; 96376; 96374; 96375; 96361; 82150; 83690; 80076; 80048; 81001; 85027; J2405; J2060; J1170; J7030

== ENCOUNTER 2018-10-08 04:34 | Emergency (ER) | payer BC, MEDICARE ==
--- NOTE | 2018-10-08 04:47 | Emergency Department Record ---
History of Present Illness - General Chief Complaint: Cough Stated Complaint: COUGH Time Seen by Provider: 10/08/18 04:39 Source: Patient, Family Mode of Arrival: Ambulatory Limitations: No limitations - History of Present Illness Initial Comments: 63 yo male presents with five days of cough, congestion, sore throat, headaches , and subjective fever. No productive sputum. He is a non smoker. His is present and has the same symptoms. No vomiting. He states it hurts to cough. He had one single episode of diarrhea. He did not have a flu shot this year. MD Complaint: Cough, Nasal congestion, Rhinorrhea, Sinus pain, Sore throat -: Days(s) (5) Severity: Moderate Quality: Aching Consistency: Constant Improves With: Nothing Worsens With: Nothing Context: Sick contacts ( with the same) Associated Symptoms: Chills, Cough, Diarrhea (once), Hoarseness, Nausea, Sore throat - Related Data Home Medications Medication Instructions Recorded Confirmed Last Taken Atenolol 50 mg PO DAILY PRN 10/08/18 10/08/18 Unknown Lamotrigine 150 mg PO BID 10/08/18 10/08/18 Unknown Meloxicam 15 mg PO DAILY 10/08/18 10/08/18 Unknown Omeprazole [Prilosec] 20 mg PO BID 10/08/18 10/08/18 Unknown Previous Rx's Medication Instructions Recorded Benzonatate [Tessalon] 1 cap PO Q8H PRN #12 cap 10/08/18 Oseltamivir Phosphate [Tamiflu] 75 mg PO BID #10 capsule 10/08/18 Allergies Allergy/AdvReac Type Severity Reaction Status Date / Time tramadol Allergy HEADACHE Verified 01/05/17 14:09 Review of Systems Constitutional: Reports: Fever, Malaise Eyes: Denies: Eye discharge, Eye pain, Vision change ENT: Reports: Congestion, Throat pain Respiratory: Reports: Cough Cardiovascular: Denies: Chest pain (hurts to cough), Palpitations, Syncope Endocrine: Denies: Fatigue Gastrointestinal: Reports: Diarrhea (once), Nausea. Denies: Abdominal pain Genitourinary: Denies: Dysuria, Frequency, Hematuria Musculoskeletal: Reports: Myalgia. Denies: Arthralgia, Back pain Skin: Denies: Bruising, Change in color, Rash Neurological: Reports: Headache. Denies: Numbness, Weakness Psychiatric: Denies: Anxiety Hematological/Lymphatic: Denies: Easy bleeding, Easy bruising Past Medical History - SOCIAL HISTORY Smoking Status: Former smoker - RESPIRATORY Hx Respiratory Disorders: No Hx Asthma: No Hx Bronchitis: No - CARDIOVASCULAR Hx Cardio Disorders: No Hx Edema: No Hx Heart Attack: No Hx Hypertension: No Hx Hypotension: No Comment:: d/t back/knee pain - NEURO Hx Neuro Disorders: No Hx Brain Tumor: No Hx CVA: No Hx Dementia: No Hx Dizziness: No Hx Headaches: No Hx Neuropathy: No Hx Parkinson's Disease: No Hx Seizures: No Hx Speech Problem: No Hx TIA: No - GI Hx GI Disorders: Yes Hx Abdominal Pain: Yes Hx GI Bleed: No Hx Reflux: Yes Hx Hepatitis/Jaundice: No Hx Nausea/Vomiting: Yes (last emesis 1pm) Hx Obstructive Bowel: No Hx Pancreatitis: No Hx Rectal Bleeding: No Hx Ulcer: Yes (pt does not think so) Hx Wt Loss/Wt Gain: No - Hx Genitourinary Disorders: No Comment:: genital herpes - ENDOCRINE Hx Endocrine Disorders: Yes Hx Thyroid Disease: Yes - MUSCULOSKELETAL Hx Musculoskeletal Disorders: Yes Hx Arthritis: Yes Hx Back Injury: Yes - PSYCH Hx Psych Problems: No Hx Anxiety: No Hx Behavior Problems: No Hx Depression: No Hx Emotional Abuse: No Hx Sexual Abuse: No Hx Suicide Attempt: No - HEMATOLOGY/ONCOLOGY Hx Hematology/Oncology Disorders: Yes Hx Cancer: Yes (Esophageal Cancer) Hx Chemotherapy: No Hx Radiation Therapy: No Physical Exam - General General Appearance: Alert, Oriented x3, Cooperative, No acute distress Limitations: No limitations - Head Head exam: Atraumatic, Normal inspection - Eye Eye exam: Normal appearance, PERRL. negative: Conjunctival injection, Scleral icterus - ENT ENT exam: Normal exam, Mucous membranes moist, Normal orophraynx Ear exam: Normal external inspection Nasal Exam: Discharge Mouth exam: Normal external inspection - Neck Neck exam: Normal inspection. negative: Lymphadenopathy - Respiratory Respiratory exam: Normal lung sounds bilaterally. negative: Accessory muscle use, Decreased breath sounds, Respiratory distress, Rhonchi, Stridor, Wheezes - Cardiovascular Cardiovascular Exam: Regular rate, Normal rhythm, Normal heart sounds - GI/Abdominal GI/Abdominal exam: Soft - Rectal Rectal exam: Deferred - exam: Deferred - Extremities Extremities exam: Normal inspection. negative: Pedal edema - Back Back exam: Denies: CVA tenderness (R), CVA tenderness (L) - Neurological Neurological exam: Alert, Oriented X3 - Psychiatric Psychiatric exam: Normal affect, Normal mood - Skin Skin exam: Dry, Intact, Normal color, Warm Disposition Disposition: Discharge Clinical Impression: Influenza A Disposition: Home, Self-Care Condition: (1) Good Instructions: Influenza (ED) Additional Instructions: Call to get a new family doctor Return or be seen if worse, short of breath, fever or new concerns Prescriptions: Benzonatate [Tessalon] 1 cap PO Q8H PRN #12 cap PRN Reason: Cough Oseltamivir Phosphate [Tamiflu] 75 mg PO BID #10 capsule Forms: Patient Portal Access Time of Disposition: 05:07 Quality - Quality Measures Quality Measures: N/A - Blood Pressure Screening Does Patient Have Any of the Following: Active Dx of HTN Blood Pressure Classification: Pre-Hypertensive BP Reading Systolic Measurement: 127 Diastolic Measurement: 89 Screening for High Blood Pressure: Patient Exclusion, Hx of HTN [[id number]]
[2018-10-08 05:04] LABS: INFLUENZA A POSITIVE (NEGATIVE); INFLUENZA B NEGATIVE (NEGATIVE)
[2018-10-08] MEDS ORDERED: OSTELTAMIVIR 75 MG CAP PO ONE (05:05)
[2018-10-08] MEDS ORDERED: BENZONATATE 100 MG CAPSULE PO ONE (05:20)
== END 2018-10-08 05:28 | disposition home or self-care (01) ==
LOC: ER 04:34
DX: J10.1 Influenza due to other identified influenza virus with other respiratory manifestations (principal); Z87.891 Personal history of nicotine dependence
CPT/HCPCS: 87400; 99283